=== PATIENT | male | born 1955 | race Two or more races ===

== ENCOUNTER 2018-05-15 15:56 | Emergency (ER) | payer MEDICAID ==
[~2018-05-15] VITALS: Ht 180.3 cm; Wt 83.9 kg
[2018-05-15 16:04] VITALS: BP_SYST 168
[2018-05-15 16:48] LABS: CREATININE 0.83 mg/dL (0.55-1.30); POTASSIUM 3.7 mmol/L (3.5-5.1)
[2018-05-15 16:54] LABS: ALBUMIN 3.9 g/dL (3.4-4.8); TOTAL BILIRUBIN 0.2 mg/dL (0.0-1.0)
[2018-05-15 17:03] LABS: HEMATOCRIT 45.7 % (36-54); HEMOGLOBIN 15.7 g/dL (14.0-18.0); MEAN CORPUSCULAR HEMOGLOBIN 30 pg (27-31); MEAN CORPUSCULAR HGB CONC 34 % (32-36); MEAN CORPUSCULAR VOLUME 88 fL (79.0-98.0); PLATELET COUNT (AUTO) 336 K/uL (130-430); RED BLOOD CELL COUNT(AUTO) 5.17 MIL/uL (4.2-6.2); RED CELL DISTRIBUTION WIDTH 13.9 % (9.0-15.0); WHITE BLOOD COUNT (AUTO) 12.2 K/uL (4.8-10.8)
[2018-05-15 17:04] LABS: BASOPHILS # (AUTO) 0.1 K/uL (0.0-0.2); BASOPHILS % (AUTO) 0.5 % (0.0-2.0); EOSINOPHILS # (AUTO) 0.7 K/uL (0.0-0.4); EOSINOPHILS % (AUTO) 6.1 % (0.0-4.0); LYMPHOCYTES # (AUTO) 3.4 K/uL (1.0-5.5); MONOCYTES % (AUTO) 8.3 % (1.7-9.3); NEUTROPHILS % (AUTO) 57.1 % (40.0-70.0)
[2018-05-15 17:51] VITALS: BP_SYST 133
== END 2018-05-15 17:34 | disposition home or self-care (01) ==
LOC: SED 15:56
DX: J44.1 Chronic obstructive pulmonary disease with (acute) exacerbation (principal); R04.2 Hemoptysis; E78.00 Pure hypercholesterolemia, unspecified; F17.210 Nicotine dependence, cigarettes, uncomplicated; Z71.6 Tobacco abuse counseling
CPT/HCPCS: 36415; 71045; 80053; 84484; 85025; 99284

== ENCOUNTER 2021-04-11 21:39 | Emergency (ER) | payer OTHER, MEDICARE, SELFPAY ==
[~2021-04-11] VITALS: Ht 180.3 cm; Wt 87.1 kg
--- NOTE | 2021-04-11 21:40 | NUR ---
Placed in room 03 . Placed on aviation consultant, blood pressure machine and pulse oximeter. To gown for exam. Side rails up.
--- NOTE | 2021-04-11 21:45 | NUR ---
PATIENT BROUGHT IN COMPLAINING OF CHEST PAIN NON RADIATING STARTING YESTERDAY. DENIES ANY SHORTNESS OF BREATH. ABLE TO SPEAK FULL SENTENCES. DENIES ANY PAIN AT THIS TIME. NO OTHER COMPLAINTS/INJURIES PER PATIENT OR NOTED.
[2021-04-11 21:50] VITALS: BP_SYST 133
--- NOTE | 2021-04-11 21:59 | NUR ---
ER Dr. RANDHAWA at bedside examining patient.
--- NOTE | 2021-04-11 22:40 | NUR ---
Blood for labwork drawn BY CONCRETE WORKER. Patient tolerated WELL
[2021-04-11 22:54] LABS: HEMOGLOBIN 13.3 g/dL (14.0-18.0)
[2021-04-11 23:16] LABS: BASOPHILS # (AUTO) 0.1 K/uL (0.0-0.2); BASOPHILS % (AUTO) 0.5 % (0.0-2.0); EOSINOPHILS # (AUTO) 0.4 K/uL (0.0-0.4); EOSINOPHILS % (AUTO) 2.9 % (0.0-4.0); HEMATOCRIT 39.5 % (36-54); LYMPHOCYTES # (AUTO) 2.6 K/uL (1.0-5.5); LYMPHOCYTES % (AUTO) 18.1 % (20.5-51.5); MEAN CORPUSCULAR HEMOGLOBIN 29 pg (27-31); MEAN CORPUSCULAR HGB CONC 34 % (32-36); MEAN CORPUSCULAR VOLUME 87 fL (79.0-98.0); MONOCYTES # (AUTO) 1.2 K/uL (0.0-1.0); MONOCYTES % (AUTO) 8.4 % (1.7-9.3); NEUTROPHILS # (AUTO) 10.2 K/uL (1.8-7.7); NEUTROPHILS % (AUTO) 70.1 % (40.0-70.0); PLATELET COUNT (AUTO) 284 K/uL (130-430); RED BLOOD CELL COUNT(AUTO) 4.54 MIL/uL (4.2-6.2); RED CELL DISTRIBUTION WIDTH 13.6 % (9.0-15.0); WHITE BLOOD COUNT (AUTO) 14.5 K/uL (4.8-10.8)
[2021-04-11 23:29] LABS: CALCIUM 8.7 mg/dL (8.4-11.0); CREATININE 0.85 mg/dL (0.55-1.30); POTASSIUM 3.8 mmol/L (3.5-5.1)
[2021-04-11 23:41] LABS: ALBUMIN 3.5 g/dL (3.4-4.8); TOTAL BILIRUBIN 0.3 mg/dL (0.0-1.0)
--- NOTE | 2021-04-12 00:06 | NUR ---
DR. RANDHAWA AT BEDSIDE DISCUSSING RESULTS WITH PATIENT.
[2021-04-12 00:16] VITALS: BP_SYST 126
--- NOTE | 2021-04-12 00:16 | NUR ---
Patient given written and verbal discharge instructions and verbalizes understanding. ER MD discussed with patient the results and treatment provided. Patient in stable condition. ID arm band removed. IV catheter removed intact and dressing applied, no active bleeding. NO RX given. Patient educated on pain management and to follow up with PMD. Pain Scale 0/10 Opportunity for questions provided and answered.
== END 2021-04-12 00:16 | disposition home or self-care (01) ==
LOC: SED 21:39
DX: I35.0 Nonrheumatic aortic (valve) stenosis (principal); R07.89 Other chest pain; R00.2 Palpitations
CPT/HCPCS: 36415; 71045; 80053; 83880; 84484; 85025; 93005; 99285

== ENCOUNTER 2021-05-10 19:26 | Emergency (ER) | payer OTHER, MEDICARE ==
[~2021-05-10] VITALS: Ht 180.3 cm; Wt 86.2 kg
[~2021-05-10 19:26] MED LIST: AMIO200T66 PO; BISO5TAB15 PO; RIVA20TA PO
[2021-05-10 19:39] VITALS: BP_SYST 145
[2021-05-10 20:41] LABS: BASOPHILS # (AUTO) 0.1 K/uL (0.0-0.2); BASOPHILS % (AUTO) 0.6 % (0.0-2.0); EOSINOPHILS # (AUTO) 0.3 K/uL (0.0-0.4); EOSINOPHILS % (AUTO) 2.2 % (0.0-4.0); HEMATOCRIT 41.8 % (36-54); HEMOGLOBIN 14.1 g/dL (14.0-18.0); LYMPHOCYTES # (AUTO) 3.3 K/uL (1.0-5.5); LYMPHOCYTES % (AUTO) 24.6 % (20.5-51.5); MEAN CORPUSCULAR HEMOGLOBIN 30 pg (27-31); MEAN CORPUSCULAR HGB CONC 34 % (32-36); MEAN CORPUSCULAR VOLUME 88 fL (79.0-98.0); MONOCYTES # (AUTO) 0.8 K/uL (0.0-1.0); MONOCYTES % (AUTO) 5.7 % (1.7-9.3); NEUTROPHILS # (AUTO) 8.9 K/uL (1.8-7.7); NEUTROPHILS % (AUTO) 66.9 % (40.0-70.0); PLATELET COUNT (AUTO) 274 K/uL (130-430); RED BLOOD CELL COUNT(AUTO) 4.78 MIL/uL (4.2-6.2); RED CELL DISTRIBUTION WIDTH 13.6 % (9.0-15.0); WHITE BLOOD COUNT (AUTO) 13.3 K/uL (4.8-10.8)
[2021-05-10 20:50] LABS: CREATININE 0.77 mg/dL (0.55-1.30); POTASSIUM 3.9 mmol/L (3.5-5.1)
[2021-05-10 20:58] LABS: ALBUMIN 3.7 g/dL (3.4-4.8); TOTAL BILIRUBIN 0.4 mg/dL (0.0-1.0)
[2021-05-10 21:52] VITALS: BP_SYST 114
== END 2021-05-10 23:08 | disposition home or self-care (01) ==
LOC: SED 19:26
DX: R42 Dizziness and giddiness (principal); I48.91 Unspecified atrial fibrillation; Z79.899 Other long term (current) drug therapy
CPT/HCPCS: 36415; 71045; 80053; 83880; 84484; 85025; 93005; 99285